=== PATIENT | male | born 1940 | race Caucasian/White ===

== ENCOUNTER → 2016-11-19 | Outpatient (CLI) | payer MEDICARE, OTHER ==
[~2016-11-19] MED LIST: CIPR500T89 PO; MICR10CA PO; MULTTAB4 PO; OMEP20CA3 PO; PERC5TAB6 PO; PERCOCET PO; SENN8.6T7 PO; SENO8.6T9 PO; TRAVATAN OU; ZITHTAB PO
[2016-11-19 13:49] LABS: MEAN CORPUSCULAR HEMOGLOBIN 28.5 pg (27.0-33.0); MEAN CORPUSCULAR HGB CONC 32.2 g/dl (32.0-36.5); MEAN CORPUSCULAR VOLUME 88.6 fl (80.0-96.0); RED CELL DISTRIBUTION WIDTH 12.7 % (11.5-14.5); WHITE BLOOD COUNT 7.5 K/mm3 (4.0-10.0)
[2016-11-19 13:56] LABS: ANION GAP 9 MEQ/L (8-16); BLOOD UREA NITROGEN 14 MG/DL (7-18); CALCIUM LEVEL 8.4 MG/DL (8.8-10.2); CARBON DIOXIDE LEVEL 28 MEQ/L (21-32); CHLORIDE LEVEL 101 MEQ/L (98-107); CREATININE FOR GFR 1.11 MG/DL (0.70-1.30); GLOMERULAR FILTRATION RATE > 60.0 (>42); GLUCOSE, FASTING 153 MG/DL (83-110); POTASSIUM SERUM 4.5 MEQ/L (3.5-5.1); SODIUM LEVEL 138 MEQ/L (136-145)
== END ==
LOC: M SMT 10:08
PROVIDERS: ATTEND Urology
DX: Z85.46 Personal history of malignant neoplasm of prostate (principal); Z85.51 Personal history of malignant neoplasm of bladder

== ENCOUNTER → 2016-11-25 | Outpatient (CLI) | payer MEDICARE, OTHER ==
[~2016-11-25] MED LIST changes: +CYSTO-CONRAY II 17.2% 250ML VIAL (Q9958) As Ordered ONE
--- NOTE | 2016-11-25 17:01 | REP ---
LOOPOGRAM: The procedure was performed under the direct supervision of Dr. Penaloza. The images were reviewed with Dr. Penaloza. The general partner film demonstrates a right nephrostomy catheter in place. An #18-Viet[place] Paiz catheter was inserted into the stoma. Approximately 50 mL of Cysto-Conray 2 was instilled into the ileal loop. There is contrast seen filling the ileal loop. There is reflux of contrast into the left ureter and left collecting system. There is no evidence of stricture or obstruction at the left ureter anastomosis. There is also contrast seen refluxing in the right ureter however in the mid ureter there is a 2.1 cm stricture. There is a small amount of contrast that does advance into the right collecting system. The right ureteral anastomosis shows no evidence of stricture or obstruction. IMPRESSION: In the right midureter there is a 2.1 cm stricture with a small amount of contrast seen extending into the right renal collecting system. There is no evidence of stricture or obstruction at either ureteral anastomosis. 45 seconds of fluoroscopic time was utilized for this procedure. Reviewed by EDWAR Lopez 11/26/2016 05:37 PEdited and Signed by Micheal Penaloza MD 11/26/2016 07:40 P
== END ==
LOC: M RADPRO 09:22
PROVIDERS: ATTEND Urology
DX: Z85.51 Personal history of malignant neoplasm of bladder (principal); N35.9 Urethral stricture, unspecified; Z08 Encounter for follow-up examination after completed treatment for malignant neoplasm
CPT/HCPCS: 50690; 74425; Q9958

== ENCOUNTER → 2016-11-29 | Outpatient (CLI) | payer MEDICARE, OTHER ==
[~2016-11-29] MED LIST changes: -CYSTO-CONRAY II 17.2% 250ML VIAL (Q9958) As Ordered ONE
[2016-11-29 10:59] LABS: MEAN CORPUSCULAR HEMOGLOBIN 28.6 pg (27.0-33.0); MEAN CORPUSCULAR VOLUME 86.7 fl (80.0-96.0); RED CELL DISTRIBUTION WIDTH 13.1 % (11.5-14.5); WHITE BLOOD COUNT 8.4 K/mm3 (4.0-10.0)
[2016-11-29 11:03] LABS: INR 1.01
[2016-11-29 11:36] LABS: ALBUMIN 2.8 GM/DL (3.2-5.2); ALKALINE PHOSPHATASE 108 U/L (45-117); ALT/SGPT 28 U/L (12-78); ANION GAP 10 MEQ/L (8-16); AST/SGOT 41 U/L (15-37); BILIRUBIN,TOTAL 0.2 MG/DL (0.2-1.0); BLOOD UREA NITROGEN 15 MG/DL (7-18); CALCIUM LEVEL 8.8 MG/DL (8.8-10.2); CARBON DIOXIDE LEVEL 27 MEQ/L (21-32); CHLORIDE LEVEL 100 MEQ/L (98-107); CREATININE FOR GFR 1.03 MG/DL (0.70-1.30); GLOMERULAR FILTRATION RATE > 60.0 (>42); GLUCOSE, FASTING 137 MG/DL (83-110); POTASSIUM SERUM 4.1 MEQ/L (3.5-5.1); SODIUM LEVEL 137 MEQ/L (136-145); TOTAL PROTEIN 6.8 GM/DL (6.4-8.2)
--- NOTE | 2016-11-29 18:05 | REP ---
CHEST, TWO VIEWS: REASON: Stricture. PRIOR: 07/12/2016 FINDINGS: The superior mediastinal structures are midline. The cardiac silhouette is unremarkable in size, shape, and position. The diaphragmatic surfaces of the lungs are regular, and the costophrenic angles are clear. The pulmonary beltran are clear. The imaged osseous structures are intact. No change from the prior exam. IMPRESSION: There is no acute cardiopulmonary disease. Signed by Dwayne Lassiter DO 11/29/2016 07:20 P
--- NOTE | 2016-11-29 23:36 | ECGEPIP ---
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
== END ==
LOC: M LAB 10:07
PROVIDERS: ATTEND Urology
DX: N13.5 Crossing vessel and stricture of ureter without hydronephrosis (principal); Z79.899 Other long term (current) drug therapy